=== PATIENT | female | born 1940 | race Caucasian/White ===

== ENCOUNTER 2018-05-28 13:48 | Inpatient (IN) ==
[2018-05-28] MEDS ORDERED: ONDANSETRON 4 MG/2 ML VIAL IV PRN ×2 (14:28→19:33)
[2018-05-28] MEDS ORDERED: SODIUM CHLORIDE 0.9% 1,000 ML IV STA ×2 (14:28→17:50)
[2018-05-28 15:34] LABS: Albumin 3.3 G/DL (3.4-5.0); Bilirubin,Total 0.4 MG/DL (0.2-1.0); Calcium 7.5 MG/DL (8.5-10.1); Osmolality,Calculated 277.7 MOS/KG (273-304); Potassium 4.4 MMOL/L (3.5-5.1); Total Protein 6.1 G/DL (6.4-8.3)
[2018-05-28 15:38] LABS: Basophils % 0.4 % (0.0-0.8); Eosinophils # 0.2 10*3/uL (0.0-0.87); Eosinophils % 2.1 % (0.00-10.9); Hematocrit 35.3 VOL% (35.7-47.0); Hemoglobin 11.9 GM/DL (12.0-16.0); Immature Granulocytes % 0.3 %; Immature Granulocytes Absolute 0.03 #; Lymphocytes # 2.7 10*3/uL (1.4-4.0); Lymphocytes % 27.8 % (21.3-54.2); Mean Corpuscular HGB Conc 33.7 GM/DL (32-36); Mean Corpuscular Hemoglobin 31 PG (27-34); Mean Corpuscular Volume 90.5 FL (87-102); Mean Platelet Volume 10.3 FL (9.6-12.0); Monocytes # 0.8 10*3/uL (0.11-0.8); Monocytes % 8.3 % (1.7-12.7); Neutrophils # 5.9 10*3/uL (1.4-7.4); Neutrophils % 61.1 % (38.7-73.9); Platelet Count 251 T/CUMM (130-400); Red Cell Distribution Width 12.7 % (9.3-17.3); White Blood Count 9.6 T/CUMM (4-12)
[2018-05-28 15:45] LABS: PT Patient Result 10.8 SECS
[2018-05-28] MEDS ORDERED: SODIUM CHLORIDE 0.9% 1,000 ML IV PRN (17:22)
[2018-05-28] MEDS ORDERED: ONDANSETRON 4 MG/2 ML VIAL IV STA (17:51)
[2018-05-28 18:30] LABS: Hematocrit 27.9 VOL% (35.7-47.0); Hemoglobin 9.5 GM/DL (12.0-16.0)
[2018-05-28] MEDS ORDERED: PANTOPRAZOLE 40 MG TABLET PO SCH (19:33)
[2018-05-28] MEDS ORDERED: SODIUM CHLORIDE 0.9% 1,000 ML IV SCH (19:33)
[2018-05-28] MEDS: DOCUSATE SODIUM 100 MG CAPSULE PO SCH (20:59)
[2018-05-28] MEDS: FAMOTIDINE 20 MG TABLET PO SCH (21:00)
[2018-05-28] MEDS: COLESTIPOL 1 GM TABLET PO SCH (21:00)
[2018-05-28] MEDS: CARVEDILOL 3.125 MG TABLET PO SCH (21:00)
[2018-05-28] MEDS: ATORVASTATIN 20 MG TABLET PO SCH (21:00)
[2018-05-28] MEDS ORDERED: ESTRADIOL TRANSDERM SCH (21:00)
[2018-05-28] MEDS: PANTOPRAZOLE 40 MG VIAL IV SCH (21:18)
[2018-05-29 00:55] LABS: Hematocrit 29.8 VOL% (35.7-47.0); Hemoglobin 10.1 GM/DL (12.0-16.0)
[2018-05-29] MEDS: ACETAMINOPHEN 325 MG TABLET PO PRN ×2 (03:08→21:21)
[2018-05-29 06:30] LABS: Basophils % 0.3 % (0.0-0.8); Eosinophils # 0.1 10*3/uL (0.0-0.87); Eosinophils % 0.7 % (0.00-10.9); Hematocrit 28.4 VOL% (35.7-47.0); Hematocrit 28.6 VOL% (35.7-47.0); Hemoglobin 9.6 GM/DL (12.0-16.0); Hemoglobin 9.7 GM/DL (12.0-16.0); Hemoglobin 9.8 GM/DL (12.0-16.0); Immature Granulocytes % 0.3 %; Immature Granulocytes Absolute 0.03 #; Lymphocytes # 2.7 10*3/uL (1.4-4.0); Lymphocytes % 28.4 % (21.3-54.2); Mean Corpuscular HGB Conc 34.5 GM/DL (32-36); Mean Corpuscular Hemoglobin 31 PG (27-34); Mean Corpuscular Volume 88.8 FL (87-102); Monocytes # 0.7 10*3/uL (0.11-0.8); Monocytes % 7.6 % (1.7-12.7); Neutrophils # 5.9 10*3/uL (1.4-7.4); Neutrophils % 62.7 % (38.7-73.9); Platelet Count 177 T/CUMM (130-400); Red Cell Distribution Width 13.6 % (9.3-17.3); White Blood Count 9.3 T/CUMM (4-12)
[2018-05-29 08:29] LABS: Hematocrit 29.6 VOL% (35.7-47.0)
[2018-05-29] MEDS: COLESTIPOL 1 GM TABLET PO SCH ×2 (08:41→21:19)
[2018-05-29] MEDS: FAMOTIDINE 20 MG TABLET PO SCH ×2 (08:41→21:19)
[2018-05-29] MEDS: PANTOPRAZOLE 40 MG VIAL IV SCH (08:41)
[2018-05-29] MEDS: DOCUSATE SODIUM 100 MG CAPSULE PO SCH ×2 (08:41→21:20)
[2018-05-29] MEDS: CARVEDILOL 3.125 MG TABLET PO SCH ×2 (08:41→21:19)
[2018-05-29] MEDS: CHOLECALCIFEROL 1,000 UNIT TABLET PO SCH (08:41)
[2018-05-29] MEDS: LACTOBACILLUS RHAMNOSUS GG CAPSULE PO SCH (08:41)
[2018-05-29 14:13] LABS: Hematocrit 28.3 VOL% (35.7-47.0); Hemoglobin 9.7 GM/DL (12.0-16.0)
[2018-05-29 19:56] LABS: Hematocrit 28.8 VOL% (35.7-47.0); Hemoglobin 9.8 GM/DL (12.0-16.0)
[2018-05-29] MEDS: ATORVASTATIN 20 MG TABLET PO SCH (21:19)
[2018-05-30 02:44] LABS: Hematocrit 25.4 VOL% (35.7-47.0); Hemoglobin 8.6 GM/DL (12.0-16.0)
[2018-05-30] MEDS: CARVEDILOL 3.125 MG TABLET PO SCH ×2 (08:30→21:02)
[2018-05-30] MEDS: COLESTIPOL 1 GM TABLET PO SCH ×2 (08:30→21:03)
[2018-05-30] MEDS: PANTOPRAZOLE 40 MG VIAL IV SCH (08:30)
[2018-05-30] MEDS: DOCUSATE SODIUM 100 MG CAPSULE PO SCH ×2 (08:30→21:10)
[2018-05-30] MEDS: FAMOTIDINE 20 MG TABLET PO SCH ×2 (08:30→21:02)
[2018-05-30] MEDS: CHOLECALCIFEROL 1,000 UNIT TABLET PO SCH (08:30)
[2018-05-30] MEDS: LACTOBACILLUS RHAMNOSUS GG CAPSULE PO SCH (08:30)
[2018-05-30] MEDS: ATORVASTATIN 20 MG TABLET PO SCH (21:02)
[2018-05-30] MEDS: ALUMINUM/MAGNES/SIMETH MAX STR 30 ML UDCUP PO PRN (23:03)
[2018-05-31 05:20] LABS: Hematocrit 27.7 VOL% (35.7-47.0); Hemoglobin 9.5 GM/DL (12.0-16.0)
[2018-05-31] MEDS: ALUMINUM/MAGNES/SIMETH MAX STR 30 ML UDCUP PO PRN (07:43)
[2018-05-31] MEDS: CHOLECALCIFEROL 1,000 UNIT TABLET PO SCH (08:40)
[2018-05-31] MEDS: DOCUSATE SODIUM 100 MG CAPSULE PO SCH (08:40)
[2018-05-31] MEDS: CARVEDILOL 3.125 MG TABLET PO SCH (08:40)
[2018-05-31] MEDS: LACTOBACILLUS RHAMNOSUS GG CAPSULE PO SCH (08:40)
[2018-05-31] MEDS: FAMOTIDINE 20 MG TABLET PO SCH (08:40)
[2018-05-31] MEDS: COLESTIPOL 1 GM TABLET PO SCH (08:40)
[2018-05-31] MEDS: PANTOPRAZOLE 40 MG VIAL IV SCH (08:48)
[2018-05-31] MEDS ORDERED: POLYETHYLENE GLYCOL POWDER 17 GM PACK PO SCH (09:00)
[2018-05-31 12:16] VITALS: BP 156/75
== END 2018-05-31 12:56 | disposition home or self-care (01) | DRG 920 ==
LOC: N.EDINP 13:48 → N.ED 13:48 → N.CC 19:25 → SUATTDRO 05-29 14:01 → N.2E 05-29 14:38
PROVIDERS: ADMIT Family Medicine; ATTEND Family Medicine

== ENCOUNTER 2020-05-21 16:24 | Inpatient (IN) ==
[2020-05-21] MEDS ORDERED: ONDANSETRON 4 MG/2 ML VIAL ONE (16:42)
[2020-05-21] MEDS ORDERED: ONDANSETRON 4 MG/2 ML VIAL IV ONE (16:43)
[2020-05-21 16:53] LABS: Basophils % 0.3 % (0.0-0.8); Eosinophils # 0.1 10*3/uL (0.0-0.87); Eosinophils % 0.8 % (0.00-10.9); Hematocrit 43.4 VOL% (35.7-47.0); Hemoglobin 14.8 GM/DL (12.0-16.0); Immature Granulocytes % 0.3 %; Immature Granulocytes Absolute 0.04 #; Lymphocytes # 1.9 10*3/uL (1.4-4.0); Lymphocytes % 16.7 % (21.3-54.2); Mean Corpuscular HGB Conc 34.1 GM/DL (32-36); Mean Corpuscular Volume 89.5 FL (87-102); Mean Platelet Volume 9.4 FL (9.6-12.0); Monocytes % 6.8 % (1.7-12.7); Neutrophils % 75.1 % (38.7-73.9); Platelet Count 301 T/CUMM (130-400); Red Blood Count 4.85 MC/CUMM (3.8-5.5); Red Cell Distribution Width 12.2 % (9.3-17.3); White Blood Count 11.5 T/CUMM (4-12)
[2020-05-21 17:12] LABS: Albumin 4.2 G/DL (3.4-5.0); Bilirubin,Total 0.5 MG/DL (0.2-1.0); Calcium 9.5 MG/DL (8.5-10.1); Osmolality,Calculated 271.2 MOS/KG (273-304)
[2020-05-21 17:15] LABS: Apearance,Urine CLEAR (Clear); Bacteria,Urine Occasional /HPF (Few); Bilirubin,Urine Negative (Negative); Blood, Urine Negative (Negative); Glucose,Urine (UA) Negative (Negative); Hyaline Casts,Urine 1 /LPF (0-3); Ketones,Urine Negative (Negative); Mucus,Urine Moderate /LPF (Occasional); Nitrite,Urine Negative (Negative); Protein,Urine Negative; RBC,Urine 3 /HPF (0-4); Squamous Epithelial Cell,Urine Occasional /HPF (0-10); Urine Color Yellow (Yellow); Urine Urobilinogen < 2.0 EU/DL (0.2-1.0); WBC,Urine 25 /HPF (0-6)
[2020-05-21] MEDS ORDERED: LACTATED RINGERS 1,000 ML IV ONE (17:30)
[2020-05-21] MEDS ORDERED: SULFAMETHOX/TRIMETHOPRIM 800-160 MG TABLET PO STA (17:33)
[2020-05-21] MEDS ORDERED: ONDANSETRON 4 MG/2 ML VIAL IV STA (18:42)
[2020-05-21] MEDS ORDERED: ONDANSETRON 4 MG/2 ML VIAL IV PRN (18:56)
[2020-05-21] MEDS ORDERED: ACETAMINOPHEN 325 MG TABLET PO PRN (18:56)
[2020-05-21] MEDS ORDERED: LEVOFLOXACIN INJ 500 MG in PREMIX 1 EACH IV SCH (19:00)
[2020-05-21] MEDS: DEXTROSE 5% NACL 0.45% 1,000 ML IV SCH (19:35)
[2020-05-21] MEDS ORDERED: PROMETHAZINE 25 MG/1 ML VIAL IM STA (19:42)
[2020-05-21] MEDS ORDERED: BENZOCAINE/BUTAMBEN/TETRACAINE SPRAY 20 GM CAN TOP ONE (20:00)
[2020-05-21] MEDS: MORPHINE 4 MG/1 ML VIAL IV PRN (20:45)
[2020-05-21] MEDS ORDERED: metroNIDAZOLE INJ 500 MG in PREMIX 1 EACH IV SCH (21:00)
[2020-05-21] MEDS: PIPERACILLIN/TAZOBACTAM 3,375 MG in SODIUM CHLORIDE 0.9% 100 ML IV SCH (23:46)
[2020-05-22 06:14] LABS: Basophils % 0.3 % (0.0-0.8); Eosinophils # 0.1 10*3/uL (0.0-0.87); Eosinophils % 0.7 % (0.00-10.9); Hematocrit 39.1 VOL% (35.7-47.0); Hemoglobin 13.1 GM/DL (12.0-16.0); Immature Granulocytes % 0.5 %; Immature Granulocytes Absolute 0.05 #; Lymphocytes % 9.5 % (21.3-54.2); Mean Corpuscular HGB Conc 33.5 GM/DL (32-36); Mean Corpuscular Volume 90.1 FL (87-102); Mean Platelet Volume 9.8 FL (9.6-12.0); Monocytes % 6.1 % (1.7-12.7); Neutrophils % 82.9 % (38.7-73.9); Platelet Count 265 T/CUMM (130-400); Red Blood Count 4.34 MC/CUMM (3.8-5.5); Red Cell Distribution Width 12.3 % (9.3-17.3); White Blood Count 10.6 T/CUMM (4-12)
[2020-05-22 06:40] LABS: Bilirubin,Total 0.6 MG/DL (0.2-1.0); Calcium 8.8 MG/DL (8.5-10.1); Osmolality,Calculated 271.2 MOS/KG (273-304); Total Protein 6.4 G/DL (6.4-8.3)
[2020-05-22] MEDS ORDERED: BENZOCAINE/MENTHOL LOZENGE 18/BOX PO PRN (07:58)
[2020-05-22] MEDS: PANTOPRAZOLE 40 MG VIAL IV SCH (08:14)
[2020-05-22] MEDS: PIPERACILLIN/TAZOBACTAM 3,375 MG in SODIUM CHLORIDE 0.9% 100 ML IV SCH ×3 (08:14→23:16)
[2020-05-22] MEDS: DEXTROSE 5% NACL 0.45% 1,000 ML IV SCH ×2 (13:13→15:36)
[2020-05-23] MEDS: DEXTROSE 5% NACL 0.45% 1,000 ML IV SCH ×2 (06:00→12:17)
[2020-05-23] MEDS: PANTOPRAZOLE 40 MG VIAL IV SCH (09:27)
[2020-05-23] MEDS: PIPERACILLIN/TAZOBACTAM 3,375 MG in SODIUM CHLORIDE 0.9% 100 ML IV SCH ×2 (09:28→16:39)
[2020-05-23] MEDS: MORPHINE 4 MG/1 ML VIAL IV PRN (17:50)
[2020-05-24] MEDS: DEXTROSE 5% NACL 0.45% 1,000 ML IV SCH (00:08)
[2020-05-24] MEDS: PIPERACILLIN/TAZOBACTAM 3,375 MG in SODIUM CHLORIDE 0.9% 100 ML IV SCH ×2 (00:08→08:17)
[2020-05-24] MEDS: PANTOPRAZOLE 40 MG VIAL IV SCH (08:42)
[2020-05-24 11:49] VITALS: BP 138/69
== END 2020-05-24 15:30 | disposition home or self-care (01) | DRG 389 ==
LOC: N.ED 16:24 → N.EDINP 16:24 → N.3E 23:02
PROVIDERS: ADMIT Family Medicine; ATTEND Family Medicine

== ENCOUNTER 2020-07-21 07:03 | Inpatient (IN) ==
[2020-07-21 07:37] LABS: Basophils % 0.3 % (0.0-0.8); Eosinophils % 0.1 % (0.00-10.9); Hematocrit 44.4 VOL% (35.7-47.0); Hemoglobin 14.9 GM/DL (12.0-16.0); Immature Granulocytes % 0.4 %; Immature Granulocytes Absolute 0.04 #; Lymphocytes # 0.9 10*3/uL (1.4-4.0); Lymphocytes % 7.8 % (21.3-54.2); Mean Corpuscular HGB Conc 33.6 GM/DL (32-36); Mean Corpuscular Volume 89.5 FL (87-102); Mean Platelet Volume 9.6 FL (9.6-12.0); Monocytes % 3.3 % (1.7-12.7); Neutrophils % 88.1 % (38.7-73.9); Platelet Count 280 T/CUMM (130-400); Red Blood Count 4.96 MC/CUMM (3.8-5.5); Red Cell Distribution Width 13.2 % (9.3-17.3)
[2020-07-21 07:50] LABS: Bilirubin,Urine Negative (Negative); Blood, Urine Negative (Negative); Glucose,Urine (UA) Negative (Negative); Hyaline Casts,Urine 5 /LPF (0-3); Ketones,Urine 20 mg/dL (Negative); Mucus,Urine Few /LPF (Occasional); Nitrite,Urine Negative (Negative); Protein,Urine Negative; RBC,Urine 1 /HPF (0-4); Squamous Epithelial Cell,Urine Occasional /HPF (0-10); Urine Appearance CLEAR (Clear); Urine Color Yellow (Yellow); Urine Specific Gravity 1.021 (1.001-1.035); Urine Urobilinogen < 2.0 EU/DL (0.2-1.0); WBC,Urine 1 /HPF (0-6)
[2020-07-21 08:00] LABS: Alanine Aminotransferase 33 U/L (13-56); Albumin 3.7 G/DL (3.4-5.0); Alkaline Phosphatase 93 U/L (45-117); Aspartate Amino Transferase 27 U/L (0-37); Blood Urea Nitrogen 17 MG/DL (7-18); Calcium 9.3 MG/DL (8.5-10.1); Estimated Glom Filtration Rate 69 ML/MIN; Glucose 192 MG/DL (74-106); Total Protein 7.9 G/DL (6.4-8.3)
[2020-07-21] MEDS ORDERED: ACETAMINOPHEN 325 MG TABLET PO PRN (11:08)
[2020-07-21] MEDS ORDERED: ONDANSETRON 4 MG/2 ML VIAL IV PRN (11:08)
[2020-07-21] MEDS: SODIUM CHLOR 0.9% KCL 40 MEQ 40 MEQ/1,000 ML BAG IV SCH ×2 (12:29→20:22)
[2020-07-21] MEDS ORDERED: SIMETHICONE CHEW 125 MG TABLET PO PRN (19:59)
[2020-07-21] MEDS: DOCUSATE SODIUM 100 MG CAPSULE PO SCH (20:23)
[2020-07-22 04:05] LABS: Basophils % 0.4 % (0.0-0.8); Eosinophils # 0.1 10*3/uL (0.0-0.87); Eosinophils % 1.3 % (0.00-10.9); Hematocrit 38.5 VOL% (35.7-47.0); Hemoglobin 12.7 GM/DL (12.0-16.0); Immature Granulocytes % 0.2 %; Immature Granulocytes Absolute 0.02 #; Lymphocytes # 1.6 10*3/uL (1.4-4.0); Mean Corpuscular Volume 90.8 FL (87-102); Mean Platelet Volume 9.8 FL (9.6-12.0); Monocytes % 8.9 % (1.7-12.7); Neutrophils % 70.2 % (38.7-73.9); Platelet Count 240 T/CUMM (130-400); Red Blood Count 4.24 MC/CUMM (3.8-5.5); Red Cell Distribution Width 13.5 % (9.3-17.3); White Blood Count 8.4 T/CUMM (4-12)
[2020-07-22 04:28] LABS: Calcium 7.8 MG/DL (8.5-10.1); Osmolality,Calculated 280.3 MOS/KG (273-304)
[2020-07-22] MEDS: SODIUM CHLOR 0.9% KCL 40 MEQ 40 MEQ/1,000 ML BAG IV SCH (04:42)
[2020-07-22] MEDS ORDERED: PANTOPRAZOLE 40 MG TABLET PO SCH (09:00)
[2020-07-22] MEDS: DOCUSATE SODIUM 100 MG CAPSULE PO SCH (09:09)
[2020-07-22 10:25] VITALS: BP 125/55
== END 2020-07-22 10:51 | disposition home or self-care (01) | DRG 389 ==
LOC: EDUNIT# → EDBD → N.ED 07:03 → N.EDINP 09:20 → N.5E 11:09
PROVIDERS: ADMIT Family Medicine; ATTEND Family Medicine

== ENCOUNTER 2020-08-26 11:35 | Observation (INO) ==
[2020-08-26] MEDS ORDERED: SODIUM CHLORIDE 0.9% 1,000 ML IV STA (12:24)
[2020-08-26] MEDS ORDERED: ONDANSETRON 4 MG/2 ML VIAL IV STA (12:24)
[2020-08-26 14:01] LABS: Bilirubin,Urine Negative (Negative); Blood, Urine Negative (Negative); Glucose,Urine (UA) Negative (Negative); Hyaline Casts,Urine 10 /LPF (0-3); Ketones,Urine Negative (Negative); Mucus,Urine Many /LPF (Occasional); Nitrite,Urine Negative (Negative); Protein,Urine Negative; RBC,Urine 22 /HPF (0-4); Squamous Epithelial Cell,Urine Occasional /HPF (0-10); Urine Appearance CLEAR (Clear); Urine Color Yellow (Yellow); Urine Specific Gravity 1.017 (1.001-1.035); Urine Urobilinogen < 2.0 EU/DL (0.2-1.0); WBC,Urine 73 /HPF (0-6)
[2020-08-26 15:11] LABS: Basophils % 0.2 % (0.0-0.8); Eosinophils % 0.1 % (0.00-10.9); Hematocrit 43.2 VOL% (35.7-47.0); Hemoglobin 14.5 GM/DL (12.0-16.0); Immature Granulocytes % 0.5 %; Immature Granulocytes Absolute 0.07 #; Lymphocytes # 1.4 10*3/uL (1.4-4.0); Lymphocytes % 10.3 % (21.3-54.2); Mean Corpuscular HGB Conc 33.6 GM/DL (32-36); Mean Corpuscular Volume 88.7 FL (87-102); Neutrophils % 84.9 % (38.7-73.9); Platelet Count 300 T/CUMM (130-400); Red Blood Count 4.87 MC/CUMM (3.8-5.5); Red Cell Distribution Width 13.2 % (9.3-17.3); White Blood Count 13.1 T/CUMM (4-12)
[2020-08-26] MEDS: SODIUM CHLORIDE 0.9% 1,000 ML IV SCH ×2 (15:15→22:46)
[2020-08-26 16:53] LABS: Alanine Aminotransferase 55 U/L (13-56); Albumin 3.5 G/DL (3.4-5.0); Alkaline Phosphatase 92 U/L (45-117); Aspartate Amino Transferase 18 U/L (0-37); Blood Urea Nitrogen 15 MG/DL (7-18); Calcium 8.9 MG/DL (8.5-10.1); Estimated Glom Filtration Rate 80 ML/MIN; Glucose 122 MG/DL (74-106); Osmolality,Calculated 267.4 MOS/KG (273-304); Total Protein 7.6 G/DL (6.4-8.3)
[2020-08-26] MEDS ORDERED: MORPHINE 4 MG/1 ML VIAL IV STA (17:44)
[2020-08-26] MEDS ORDERED: ONDANSETRON 4 MG/2 ML VIAL IV PRN (18:02)
[2020-08-26] MEDS: DEXTROSE 5% NACL 0.45% 1,000 ML IV SCH (22:26)
[2020-08-27] MEDS: DEXTROSE 5% NACL 0.45% 1,000 ML IV SCH (05:47)
[2020-08-27] MEDS: SODIUM CHLORIDE 0.9% 1,000 ML IV SCH ×4 (06:10→20:44)
[2020-08-27 06:21] LABS: Basophils % 0.3 % (0.0-0.8); Eosinophils # 0.1 10*3/uL (0.0-0.87); Eosinophils % 0.8 % (0.00-10.9); Hematocrit 38.2 VOL% (35.7-47.0); Hemoglobin 12.6 GM/DL (12.0-16.0); Immature Granulocytes % 0.3 %; Immature Granulocytes Absolute 0.03 #; Lymphocytes # 2.1 10*3/uL (1.4-4.0); Lymphocytes % 22.6 % (21.3-54.2); Mean Platelet Volume 9.3 FL (9.6-12.0); Monocytes % 9.1 % (1.7-12.7); Neutrophils % 66.9 % (38.7-73.9); Platelet Count 262 T/CUMM (130-400); Red Cell Distribution Width 13.2 % (9.3-17.3)
[2020-08-27 06:24] LABS: White Blood Count 9.1 T/CUMM (4-12)
[2020-08-27 06:40] LABS: Albumin 2.6 G/DL (3.4-5.0); Bilirubin,Total 0.4 MG/DL (0.2-1.0); Calcium 8.3 MG/DL (8.5-10.1); Osmolality,Calculated 278.5 MOS/KG (273-304); Total Protein 6.3 G/DL (6.4-8.3)
[2020-08-27] MEDS: PANTOPRAZOLE 40 MG TABLET PO SCH (08:51)
[2020-08-27] MEDS ORDERED: MORPHINE 4 MG/1 ML VIAL IV PRN (17:33)
[2020-08-28] MEDS: SODIUM CHLORIDE 0.9% 1,000 ML IV SCH ×4 (03:05→14:16)
[2020-08-28 05:57] LABS: Basophils % 0.4 % (0.0-0.8); Eosinophils # 0.1 10*3/uL (0.0-0.87); Eosinophils % 1.5 % (0.00-10.9); Hematocrit 37.8 VOL% (35.7-47.0); Hemoglobin 12.5 GM/DL (12.0-16.0); Immature Granulocytes % 0.4 %; Immature Granulocytes Absolute 0.03 #; Lymphocytes # 1.4 10*3/uL (1.4-4.0); Lymphocytes % 17.2 % (21.3-54.2); Mean Corpuscular HGB Conc 33.1 GM/DL (32-36); Mean Corpuscular Volume 90.9 FL (87-102); Mean Platelet Volume 9.7 FL (9.6-12.0); Neutrophils % 70.5 % (38.7-73.9); Platelet Count 234 T/CUMM (130-400); Red Blood Count 4.16 MC/CUMM (3.8-5.5); Red Cell Distribution Width 13.2 % (9.3-17.3); White Blood Count 8.1 T/CUMM (4-12)
[2020-08-28 06:22] LABS: Calcium 8.1 MG/DL (8.5-10.1); Osmolality,Calculated 277.4 MOS/KG (273-304)
[2020-08-28] MEDS: PANTOPRAZOLE 40 MG TABLET PO SCH (08:10)
[2020-08-28] MEDS ORDERED: POTASSIUM CHLORIDE 20 MEQ TABLET PO ONE (09:20)
[2020-08-28] MEDS ORDERED: ALUMINUM/MAGNES/SIMETH MAX STR 30 ML UDCUP PO PRN (14:06)
[2020-08-28 15:55] VITALS: BP 138/57
[2020-08-29] MEDS ORDERED: POTASSIUM CHLORIDE 20 MEQ TABLET PO SCH (09:00)
== END 2020-08-28 16:24 | disposition home or self-care (01) ==
LOC: N.ED 11:35 → N.EDINP 11:35 → N.3E 21:11
PROVIDERS: ADMIT Family Medicine; ATTEND Family Medicine

== ENCOUNTER 2020-12-27 22:24 | Inpatient (IN) ==
[2020-12-27 22:54] LABS: Basophils # 0.1 10*3/uL (0.0-0.2); Basophils % 0.4 % (0.0-0.8); Eosinophils # 0.1 10*3/uL (0.0-0.87); Eosinophils % 0.4 % (0.00-10.9); Hematocrit 42.5 VOL% (35.7-47.0); Hemoglobin 14.1 GM/DL (12.0-16.0); Immature Granulocytes % 0.3 %; Immature Granulocytes Absolute 0.04 #; Lymphocytes % 7.7 % (21.3-54.2); Mean Corpuscular HGB Conc 33.2 GM/DL (32-36); Mean Corpuscular Volume 87.8 FL (87-102); Mean Platelet Volume 9.6 FL (9.6-12.0); Monocytes % 6.4 % (1.7-12.7); Neutrophils % 84.8 % (38.7-73.9); Platelet Count 267 T/CUMM (130-400); Red Blood Count 4.84 MC/CUMM (3.8-5.5); Red Cell Distribution Width 13.2 % (9.3-17.3); White Blood Count 13.5 T/CUMM (4-12)
[2020-12-27 23:06] LABS: Albumin 3.8 G/DL (3.4-5.0); Bilirubin,Total 0.5 MG/DL (0.2-1.0); Calcium 9.3 MG/DL (8.5-10.1); Osmolality,Calculated 274.1 MOS/KG (273-304); Potassium 4.1 MMOL/L (3.5-5.1); Total Protein 7.8 G/DL (6.4-8.2)
[2020-12-27] MEDS ORDERED: ONDANSETRON 4 MG/2 ML VIAL ONE (23:51)
[2020-12-28] MEDS ORDERED: ONDANSETRON 4 MG/2 ML VIAL IV STA (00:01)
[2020-12-28] MEDS ORDERED: SODIUM CHLORIDE 0.9% 1,000 ML IV STA (00:02)
[2020-12-28] MEDS ORDERED: MORPHINE 4 MG/1 ML VIAL IV PRN (04:21)
[2020-12-28] MEDS ORDERED: ONDANSETRON 4 MG/2 ML VIAL IV PRN (04:21)
[2020-12-28] MEDS: SODIUM CHLORIDE 0.9% 1,000 ML IV SCH ×3 (04:50→20:30)
[2020-12-28] MEDS ORDERED: CLINDAMYCIN INJ 900 MG in PREMIX 1 EACH IV ONE (08:45)
[2020-12-28] MEDS: DOCUSATE SODIUM 100 MG CAPSULE PO SCH ×2 (09:00→20:28)
[2020-12-28] MEDS: PANTOPRAZOLE 40 MG VIAL IV SCH (09:20)
[2020-12-28] MEDS ORDERED: BUPIVACAINE MPF 0.25% 30 ML VIAL ONE (11:45)
[2020-12-28] MEDS ORDERED: DEXAMETHASONE 4 MG/1 ML VIAL ONE ×2 (11:45→13:05)
[2020-12-28] MEDS ORDERED: MIDAZOLAM 2 MG/2 ML VIAL ONE (11:45)
[2020-12-28] MEDS ORDERED: fentaNYL 100 MCG/2 ML VIAL ONE (11:45)
[2020-12-28] MEDS ORDERED: SEVOFLURANE 1 UNIT/15 MINUTE INH ONE ×4 (11:46→13:04)
[2020-12-28] MEDS ORDERED: ROCURONIUM 50 MG/5 ML VIAL IV ONE (11:46)
[2020-12-28] MEDS ORDERED: propofoL 200 MG/20 ML VIAL IV ONE (11:46)
[2020-12-28] MEDS ORDERED: LIDOCAINE 2% 5 ML VIAL ONE (11:46)
[2020-12-28] MEDS ORDERED: TISSUE ADHESIVE 1 EACH APPLICATOR TOP ONE (12:00)
[2020-12-28] MEDS ORDERED: ACETAMINOPHEN INJ 1,000 MG/100 ML VIAL IV ONE (13:05)
[2020-12-28] MEDS ORDERED: NEOSTIGMINE 10 MG/10 ML VIAL ONE (13:05)
[2020-12-28] MEDS ORDERED: KETOROLAC 30 MG/1 ML VIAL ONE (13:05)
[2020-12-28] MEDS ORDERED: ONDANSETRON 4 MG/2 ML VIAL ONE (13:05)
[2020-12-28] MEDS ORDERED: GLYCOPYRROLATE 0.4 MG/2 ML VIAL ONE (13:05)
[2020-12-28] MEDS ORDERED: LACTATED RINGERS 1,000 ML IV ONE (13:05)
[2020-12-28 16:56] LABS: Basophils % 0.2 % (0.0-0.8); Hematocrit 40.1 VOL% (35.7-47.0); Hemoglobin 13.2 GM/DL (12.0-16.0); Immature Granulocytes % 0.4 %; Immature Granulocytes Absolute 0.04 #; Lymphocytes # 0.7 10*3/uL (1.4-4.0); Lymphocytes % 6.7 % (21.3-54.2); Mean Corpuscular HGB Conc 32.9 GM/DL (32-36); Mean Corpuscular Volume 89.3 FL (87-102); Mean Platelet Volume 9.4 FL (9.6-12.0); Monocytes % 1.3 % (1.7-12.7); Neutrophils % 91.4 % (38.7-73.9); Platelet Count 242 T/CUMM (130-400); Red Blood Count 4.49 MC/CUMM (3.8-5.5); Red Cell Distribution Width 13.6 % (9.3-17.3); White Blood Count 10.3 T/CUMM (4-12)
[2020-12-28 17:09] LABS: Calcium 8.3 MG/DL (8.5-10.1); Potassium 4.2 MMOL/L (3.5-5.1)
[2020-12-28 17:48] LABS: Lymphocytes 5 % (20-55); Segmented Neutrophils 94 % (50-85); Total Cells Counted 100
[2020-12-28 17:49] LABS: Anisocytosis Slight; Microcytosis Slight; Platelet Estimate Normal
[2020-12-28 18:29] LABS: Bilirubin,Urine Negative (Negative); Blood, Urine Negative (Negative); Glucose,Urine (UA) Negative (Negative); Ketones,Urine Negative (Negative); Mucus,Urine Occasional /LPF (Occasional); Nitrite,Urine Negative (Negative); Protein,Urine Negative; RBC,Urine 1 /HPF (0-4); Squamous Epithelial Cell,Urine Occasional /HPF (0-10); Urine Appearance CLEAR (Clear); Urine Color Yellow (Yellow); Urine Specific Gravity 1.011 (1.001-1.035); Urine Urobilinogen < 2.0 EU/DL (0.2-1.0)
[2020-12-29] MEDS: SODIUM CHLORIDE 0.9% 1,000 ML IV SCH (04:26)
[2020-12-29 05:25] LABS: Basophils % 0.2 % (0.0-0.8); Hematocrit 34.9 VOL% (35.7-47.0); Hemoglobin 11.7 GM/DL (12.0-16.0); Immature Granulocytes % 0.3 %; Immature Granulocytes Absolute 0.03 #; Lymphocytes # 1.2 10*3/uL (1.4-4.0); Lymphocytes % 13.2 % (21.3-54.2); Mean Corpuscular HGB Conc 33.5 GM/DL (32-36); Mean Corpuscular Volume 88.4 FL (87-102); Mean Platelet Volume 9.7 FL (9.6-12.0); Neutrophils % 79.3 % (38.7-73.9); Platelet Count 225 T/CUMM (130-400); Red Blood Count 3.95 MC/CUMM (3.8-5.5); Red Cell Distribution Width 13.5 % (9.3-17.3)
[2020-12-29 05:31] LABS: Calcium 7.6 MG/DL (8.5-10.1); Osmolality,Calculated 282.3 MOS/KG (273-304)
[2020-12-29] MEDS: DOCUSATE SODIUM 100 MG CAPSULE PO SCH ×2 (09:26→20:19)
[2020-12-29] MEDS: ENOXAPARIN 40 MG/0.4 ML SYRINGE SUBCUT SCH (09:26)
[2020-12-29] MEDS: PANTOPRAZOLE 40 MG VIAL IV SCH (09:29)
[2020-12-29] MEDS: DEXT 5% NACL 0.45% KCL 20 MEQ 20 MEQ/1,000 ML BAG IV SCH (13:44)
[2020-12-29] MEDS: ACETAMINOPHEN 325 MG TABLET PO PRN (20:20)
[2020-12-30] MEDS: DEXT 5% NACL 0.45% KCL 20 MEQ 20 MEQ/1,000 ML BAG IV SCH (02:29)
[2020-12-30] MEDS: ACETAMINOPHEN 325 MG TABLET PO PRN (02:30)
[2020-12-30 07:58] VITALS: BP 165/66
[2020-12-30] MEDS: ENOXAPARIN 40 MG/0.4 ML SYRINGE SUBCUT SCH (09:18)
[2020-12-30] MEDS: PANTOPRAZOLE 40 MG VIAL IV SCH (09:18)
[2020-12-30] MEDS: DOCUSATE SODIUM 100 MG CAPSULE PO SCH (09:19)
== END 2020-12-30 11:35 | disposition home or self-care (01) | DRG 337 ==
LOC: EDBD → EDUNIT# → N.ED 22:24 → N.3E 12-28 01:30 → N.EDINP 12-28 01:31 → N.3E 12-28 04:21
PROVIDERS: ADMIT Family Medicine; ATTEND Family Medicine

== ENCOUNTER 2021-08-04 23:16 | Observation (INO) ==
[2021-08-04] MEDS ORDERED: ONDANSETRON 4 MG/2 ML VIAL IV STA (23:58)
[2021-08-04] MEDS ORDERED: SODIUM CHLORIDE 0.9% 1,000 ML IV STA (23:58)
[2021-08-05 00:22] LABS: Albumin 4.4 G/DL (3.4-5.0); Bilirubin,Total 0.7 MG/DL (0.20-1.00); Calcium 9.7 MG/DL (8.5-10.1); Potassium 4.5 MMOL/L (3.5-5.1); Total Protein 8.6 G/DL (6.4-8.2)
[2021-08-05 00:52] LABS: Basophils # 0.1 10*3/uL (0.0-0.2); Basophils % 0.4 % (0.0-0.8); Eosinophils % 0.1 % (0.00-10.9); Hematocrit 45.7 VOL% (35.7-47.0); Hemoglobin 14.8 GM/DL (12.0-16.0); Immature Granulocytes % 0.5 %; Immature Granulocytes Absolute 0.06 #; Lymphocytes # 1.2 10*3/uL (1.4-4.0); Lymphocytes % 10.2 % (21.3-54.2); Mean Corpuscular HGB Conc 32.4 GM/DL (32-36); Mean Corpuscular Volume 90.5 FL (87-102); Mean Platelet Volume 10.1 FL (9.6-12.0); Monocytes % 2.9 % (1.7-12.7); Neutrophils % 85.9 % (38.7-73.9); Platelet Count 322 T/CUMM (130-400); Red Blood Count 5.05 MC/CUMM (3.8-5.5); Red Cell Distribution Width 13.1 % (9.3-17.3); White Blood Count 12.1 T/CUMM (4-12)
[2021-08-05 01:09] LABS: Bilirubin,Urine Negative (Negative); Blood, Urine Negative (Negative); Glucose,Urine (UA) 50 mg/dL (Negative); Granular Casts,Urine 10 /LPF (0-1); Hyaline Casts,Urine 26 /LPF (0-3); Ketones,Urine 20 mg/dL (Negative); Mucus,Urine Few /LPF (Occasional); Nitrite,Urine Positive (Negative); Protein,Urine 30 MG/DL; RBC,Urine 2 /HPF (0-4); Squamous Epithelial Cell,Urine Occasional /HPF (0-10); Urine Appearance CLEAR (Clear); Urine Color Amber (Yellow); Urine Specific Gravity 1.024 (1.001-1.035)
[2021-08-05] MEDS ORDERED: MORPHINE 2 MG/1 ML SYRINGE IV STA (01:21)
[2021-08-05] MEDS ORDERED: MORPHINE 2 MG/1 ML SYRINGE IV PRN (01:25)
[2021-08-05] MEDS ORDERED: ONDANSETRON 4 MG/2 ML VIAL IV PRN (01:25)
[2021-08-05] MEDS ORDERED: PROMETHAZINE INJ 12.5 MG in SODIUM CHLORIDE 0.9% 50 ML IV STA (02:44)
[2021-08-05] MEDS ORDERED: PROMETHAZINE 25 MG/1 ML VIAL ONE (03:09)
[2021-08-05] MEDS ORDERED: SODIUM CHLORIDE 0.9% 100 ML IV ONE (03:10)
[2021-08-05] MEDS: SODIUM CHLORIDE 0.9% 1,000 ML IV SCH ×3 (03:58→20:48)
[2021-08-05 05:47] LABS: Basophils % 0.2 % (0.0-0.8); Hematocrit 39.5 VOL% (35.7-47.0); Hemoglobin 13.4 GM/DL (12.0-16.0); Immature Granulocytes % 0.3 %; Immature Granulocytes Absolute 0.04 #; Lymphocytes # 0.9 10*3/uL (1.4-4.0); Mean Corpuscular HGB Conc 33.9 GM/DL (32-36); Mean Corpuscular Volume 89.8 FL (87-102); Mean Platelet Volume 9.5 FL (9.6-12.0); Monocytes % 4.7 % (1.7-12.7); Neutrophils % 87.8 % (38.7-73.9); Platelet Count 294 T/CUMM (130-400); Red Cell Distribution Width 13.2 % (9.3-17.3); White Blood Count 13.2 T/CUMM (4-12)
[2021-08-05 06:07] LABS: Albumin 3.7 G/DL (3.4-5.0); Bilirubin,Total 0.7 MG/DL (0.20-1.00); Calcium 8.9 MG/DL (8.5-10.1); Osmolality,Calculated 278.8 MOS/KG (273-304); Potassium 3.7 MMOL/L (3.5-5.1); Total Protein 7.3 G/DL (6.4-8.2)
[2021-08-05] MEDS: PANTOPRAZOLE 40 MG VIAL IV SCH (09:45)
[2021-08-05] MEDS ORDERED: ACETAMINOPHEN 325 MG TABLET PO PRN (14:31)
[2021-08-05] MEDS ORDERED: POTASSIUM CHLORIDE 20 MEQ TABLET PO PRN (16:57)
[2021-08-05] MEDS ORDERED: MAGNESIUM SULF RIDER 4 GM/100 ML PREMIX IV PRN (16:57)
[2021-08-05] MEDS ORDERED: MAGNESIUM SULF RIDER 2 GM/50 ML PREMIX IV PRN (16:57)
[2021-08-05] MEDS ORDERED: GLUCAGON 1 MG VIAL IM PRN (16:57)
[2021-08-05] MEDS ORDERED: DEXTROSE 50% 25 GM/50 ML SYRINGE IV PRN (16:57)
[2021-08-05] MEDS ORDERED: POTASSIUM CHLORIDE RIDER 10 MEQ/100 ML PREMIX IV PRN (16:57)
[2021-08-05] MEDS: MELATONIN 3 MG TABLET PO PRN (20:40)
[2021-08-05] MEDS: BACILLUS COAGULANS CAPLET PO SCH (20:40)
[2021-08-05] MEDS: amLODIPine 5 MG TABLET PO SCH (20:48)
[2021-08-06] MEDS: SODIUM CHLORIDE 0.9% 1,000 ML IV SCH ×3 (04:34→17:36)
[2021-08-06 05:47] LABS: Basophils % 0.3 % (0.0-0.8); Eosinophils # 0.2 10*3/uL (0.0-0.87); Eosinophils % 2.5 % (0.00-10.9); Hematocrit 32.3 VOL% (35.7-47.0); Immature Granulocytes % 0.3 %; Immature Granulocytes Absolute 0.02 #; Lymphocytes # 2.1 10*3/uL (1.4-4.0); Lymphocytes % 32.9 % (21.3-54.2); Mean Corpuscular HGB Conc 32.2 GM/DL (32-36); Mean Corpuscular Volume 93.4 FL (87-102); Monocytes % 9.4 % (1.7-12.7); Neutrophils % 54.6 % (38.7-73.9); Platelet Count 238 T/CUMM (130-400); Red Cell Distribution Width 13.4 % (9.3-17.3)
[2021-08-06 06:00] LABS: Hemoglobin 10.4 GM/DL (12.0-16.0); Red Blood Count 3.46 MC/CUMM (3.8-5.5); White Blood Count 6.5 T/CUMM (4-12)
[2021-08-06 06:06] LABS: Albumin 2.8 G/DL (3.4-5.0); Osmolality,Calculated 280.3 MOS/KG (273-304); Potassium 3.6 MMOL/L (3.5-5.1); Total Protein 5.3 G/DL (6.4-8.2)
[2021-08-06] MEDS: INSULIN LISPRO 100 UNIT/ML SUBCUT SCH ×5 (06:57→21:28)
[2021-08-06] MEDS: OLMESARTAN 20 MG TABLET PO SCH (08:33)
[2021-08-06] MEDS: PANTOPRAZOLE 40 MG VIAL IV SCH (08:33)
[2021-08-06] MEDS: BACILLUS COAGULANS CAPLET PO SCH ×2 (08:33→20:49)
[2021-08-06] MEDS: amLODIPine 5 MG TABLET PO SCH (20:49)
[2021-08-06] MEDS: MELATONIN 3 MG TABLET PO PRN (20:52)
[2021-08-07] MEDS: SODIUM CHLORIDE 0.9% 1,000 ML IV SCH (03:15)
[2021-08-07 07:32] VITALS: BP 143/63
[2021-08-07] MEDS: INSULIN LISPRO 100 UNIT/ML SUBCUT SCH (07:56)
[2021-08-07] MEDS: PANTOPRAZOLE 40 MG VIAL IV SCH (09:15)
[2021-08-07] MEDS: BACILLUS COAGULANS CAPLET PO SCH (09:15)
[2021-08-07] MEDS: OLMESARTAN 20 MG TABLET PO SCH (09:15)
== END 2021-08-07 10:35 | disposition home or self-care (01) ==
LOC: EDUNIT# → N.EDINP 23:16 → N.ED 23:16 → N.EDINP 08-05 03:40 → N.3E 08-05 03:48
PROVIDERS: ADMIT Family Medicine; ATTEND Family Medicine